=== PATIENT | male | born 1960 | race Caucasian/White ===

== ENCOUNTER 2017-06-18 07:40 | Outpatient (CLI) | payer OTHER ==
--- NOTE | 2017-06-18 17:41 | MRI Report ---
MRI LUMBAR SPINE WITHOUT CONTRAST INDICATION: 57-year-old male with perineal numbness x4 months. TECHNIQUE: 1. Sagittal STIR, T1 and T2. 2. Axial T1 and T2. COMPARISON: None. FINDINGS: There appear to be 5 [id number], lumbar-type vertebrae. The coronal localizer demonstrates a minor, levoconvex curvature with apex at about L3. Alignment in the sagittal plane is essentially normal. There is loss of normal T2 signal from the disks at T12-L1 and L1-L2, confirming degenerative change. Otherwise, the lumbar disks appear relatively well hydrated. The disk space heights are maintained t hroughout. There is minimal anterior wedging of the T12 vertebral body. This can be seen as a normal anatomical variant at the thoracolumbar junction. The vertebral body heights are otherwise preserved. The marrow signal intensity appears normal throughout. The conus terminates in appropriate fashion at about the L1-L2 disk level. There is no abnormal thick ening or lipomatous change of the filum. Axial Images: L1-L2: Tiny intraforaminal protrusions or bulges bilaterally. Minimal foraminal narrowing. No spinal stenosis. L2-L3: Minimal intraforaminal disk displacement bilaterally. Mild foraminal narrowing. No spinal sten osis. L3-L4: Minimal intraforaminal disk displacement bilaterally. Mild foraminal narrowing. No spinal sten osis. L4-L5: Minor, circumferential disk bulge with associated, mild intraforaminal disk displacement bilat erally. Suspect early degenerative facet arthrosis. No significant bony hypertrophy. No spinal stenos is. Mild to moderate foraminal narrowing. L5-S1: No disk herniation. Degenerative facet arthrosis with mild bony hypertrophy. No spinal canal o r foraminal stenosis. IMPRESSION: 1. Early degenerative disk and facet changes are demonstrated in the lumbar spine as described. 2. No spinal stenosis or significant foraminal narrowing. No evidence of neural impingement. Referring Provider Line: [phone] SITE ID: [id number]
== END 2017-06-18 07:41 | disposition home or self-care (01) ==
LOC: DI 07:40
PROVIDERS: ATTEND Psychiatry & Neurology Vascular Neurology
DX: M51.26 Other intervertebral disc displacement, lumbar region (principal); M51.36 Other intervertebral disc degeneration, lumbar region; M47.896 Other spondylosis, lumbar region; M47.897 Other spondylosis, lumbosacral region
CPT/HCPCS: 72148

== ENCOUNTER 2020-08-18 22:52 | Emergency (ER) | payer OTHER ==
[2020-08-19] MEDS ORDERED: NYSTATIN POWDER 15 GM TOP STA (00:26)
--- NOTE | 2020-08-19 00:43 | ED Physician Documentation ---
PD HPI SKIN - Stated complaint Stated Complaint: MED REACTION/RASH - Chief complaint Chief Complaint: Wound - History obtained from History obtained from: Patient - Additional information Additional information: Patient comes emergency department for chief complaint of rash on his left groin area, with concern that this is related to his Lamictal. Patient states that he did not notice any symptoms before today when he suddenly began to feel a burning feeling where his scrotum hangs down and contacts his inner thigh. Patient pulled the scrotum back and noticed that there was a red, weepy rash th ere. Patient had noted on his instructions for the lamotrigine that if there was any rash, he should get it checked out. Patient is concerned because this is a rash, it may have been caused by the lamotrigine. No rash anywhere else. No difficulty breathing or swelling of the oropharyngeal mucosa. Review of Systems Ten Systems: 10 systems reviewed and negative Constitutional: reports: Reviewed and negative Eyes: reports: Reviewed and negative Ears: reports: Reviewed and negative Nose: reports: Reviewed and negative Throat: reports: Reviewed and negative Cardiac: reports: Reviewed and negative Respiratory: reports: Reviewed and negative GI: reports: Reviewed and negative : reports: Reviewed and negative Skin: reports: Rash Musculoskeletal: reports: Reviewed and negative Neurologic: reports: Reviewed and negative Psychiatric: reports: Reviewed and negative Endocrine: reports: Reviewed and negative Immunocompromised: reports: Reviewed and negative PD PAST MEDICAL HISTORY - Past Medical History Past Medical History: Yes Cardiovascular: None Respiratory: None Neuro: None Endocrine/Autoimmune: Type 2 diabetes GI: GERD : Benign prostate hypertrophy HEENT: None Psych: ADD/ADHD Musculoskeletal: None Derm: None - Past Surgical History Past Surgical History: Yes General: Hiatal hernia repair Ortho: Other - Present Medications Home Medications: Ambulatory Orders Medication Instructions Recorded Confirmed Atorvastatin [Lipitor] 20 mg PO DAILY 08/18/20 08/18/20 Pantoprazole [Protonix] 20 mg PO DAILY 08/18/20 08/18/20 Propranolol [Inderal] 10 mg PO DAILY 08/18/20 08/18/20 Sertraline [Zoloft] 50 mg PO DAILY 08/18/20 08/18/20 Sildenafil Citrate [Viagra] 50 mg PO DAILY 08/18/20 08/18/20 Nystatin [Nystop] 1 applic TOP BID #15 gm 08/19/20 - Allergies Allergies/Adverse Reactions: Allergies Allergy/AdvReac Type Severity Reaction Status Date / Time codeine AdvReac Rash Verified 08/18/20 23:12 - Social History Does the pt smoke?: Yes Smoking Status: Current every day smoker Does the pt drink ETOH?: No Does the pt have substance abuse?: No - Immunizations Immunizations are current?: Yes - POLST Patient has POLST: No PD ED PE NORMAL - Vitals Vital signs reviewed: Yes - General General: Alert and oriented X 3, No acute distress - HEENT HEENT: Atraumatic, PERRL, EOMI, Moist mucous membranes - Neck Neck: Supple, no meningeal sign - Cardiac Cardiac: RRR, No murmur, Strong equal pulses - Respiratory Respiratory: No respiratory distress, Clear bilaterally - Abdomen Abdomen: Soft, Non tender, Non distended - Male Male : Other (Moist, intensely red rash with mirror image formation between proximalmost medial left thigh and scrotum. No induration, edema, or drainage. Satellite lesions noted.) - Derm Derm: Warm and dry - Extremities Extremities: No deformity, No edema - Neuro Neuro: Alert and oriented X 3 - Psych Psych: Normal mood, Normal affect Results - Vitals Vitals: Vital Signs - 24 hr 08/18/20 08/19/20 23:06 00:46 Temperature 36.4 C L Heart Rate 110 H 20 L Respiratory 17 17 Rate Blood Pressure 138/100 H 138/96 H O2 Saturation 96 95 Oxygen O2 Source Room air PD MEDICAL DECISION MAKING - ED course Complexity details: considered differential, d/w patient ED course: I discussed with the patient that this is not the kind of rash that would be of concern with his lamotrigine or with any other medication in terms of reaction. I explained to the patient what a medication reaction may look like and that it would be far more diffuse though this. The patient symptoms appear consistent with candidal dermatitis in the flexural areas. We have started nystatin here and I have given the patient a prescription for the nystatin. As for whether he will still take the lamotrigine, I have advised him that it is up to him, but I do not believe he has had a reaction to the lamotrigine. Patient is advised to follow-up with his primary care physician for further concerns. Departure - Departure Disposition: 01 Home, Self Care Clinical Impression: Jennifer infection of flexural skin Condition: Stable Instructions: ED Candidiasis Cutaneous Prescriptions: Nystatin [Nystop] 1 applic TOP BID #15 gm Comments: Your rash does not have the appearance or distribution that is associated with a medication reaction. Generally, we would expect this kind of rash to take the appearance more of hives or "bumps". Additionally, the rash generally would be spread at least over your torso and often over the extremities, as well. The rash you have is very much consistent with a yeast infection, and anywhere where skin folds come together is prone to this kind of infection. Additionally, your having diabetes puts you at increased risk for this, as well. Please apply the powder to the area twice daily for the next 7 days or until the rash completely resolves. It is up to you whether to continue taking the lamotrigine, but at this time, you do not appear to be having an allergic reaction or a side effect related to that medication. Your blood pressure here was 138/100 when you first got here. The top number is on the high end of normal, and the bottom number is somewhat elevated, as we like to see it below 95. If your blood pressures continue to run high, please follow-up with your primary care physician to discuss the best treatment plan. Discharge Date/Time: 08/19/20 00:58
[2020-08-19 00:47] VITALS: BP 138/96
== END 2020-08-19 00:58 | disposition home or self-care (01) ==
LOC: ED 22:52
DX: B37.2 Candidiasis of skin and nail (principal); E11.9 Type 2 diabetes mellitus without complications; F17.200 Nicotine dependence, unspecified, uncomplicated
CPT/HCPCS: 99282; 99284; A9270

== ENCOUNTER 2020-11-18 16:21 | Outpatient (CLI) | payer OTHER ==
[2020-11-18 17:17] VITALS: BP 119/78
--- NOTE | 2020-11-18 17:17 | SLEEP CARE CONSULTATION ---
Information from patient questionnaire entered by Henrry Tripathi. I have reviewed and concur with the information entered by Henrry Tripathi. This document represents the service I personally performed and the decisions made by me, Nannette Spaulding ARNP. History of Present Illness Service Date and Time: 11/18/2020 1621 Reason for Visit: New patient Chief Complaint: reports: Unrefreshed sleep, Snoring, Excessive daytime sleepiness, Observed pauses in breathing, Frequent awakenings at night Date of Onset: 25 years Usual bedtime: 2200 Time it takes to fall asleep: several hours sometimes Snores at night: Yes Observed to quit breathing while asleep: Yes Sleeps alone due to snoring: No Number of times waking at night: 3 to 4 Reasons for waking at night: reports: Choking (acid reflux), Gasping for air, Other (dreams, other unknown) Toss, Turn, or Twitch while sleeping: No Recalls having dreams: Yes Usually gets out of bed at: 0530 - 0600 Feels refreshed in the morning: No Morning headache: No Sleepy or fatigued during the day: Yes Ever fallen asleep while driving: No (no drowsy driving) Takes day naps: No Prior sleep studies: No Additional HPI information: I had the pleasure of seeing ALEXIA HARVEY today regarding the possibility of him having a sleep disorder. His current complaints are frequent night awakenings, insomnia, snoring, and unrefreshed sleep. His states he snores a lot and will sometimes sleep in another room. He has had trouble during surgery with his vital signs decreasing and needs extra oxygen. His has observed pauses in breathing. He feels that sometimes it feels like his throat is closing. He does not wake up feeling refreshed and is tired throughout the day. His mother has sleep apnea and in on a PAP device. - Parasomnia Symptoms Ever been unable to move upon waking from sleep: No Walks in sleep: No Talks in sleep: Yes Ever acted out dreams in sleep: No Ever felt weak in the knees when startled or emotional: No Bothered by creepy, crawly, restless sensations in legs: No Problems with memory or concentration: Yes (more memory problems but concentration is better with medication) Subjective Initial [place] Sleepiness Scale score: 8 (in 2020) Past Medical History Past Medical History: reports: Claustrophobia, Diabetes, Anxiety, Impotence, Asthma, Depression, GERD, Other (heart murmur) Social History 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 Patient is and lives in [place]. Have you smoked in the past 12 months: Yes Cigarettes per day (20/pack): 40 Years of smokin Smoking Pack Years: 20.0 Alcohol use: No Caffeine use: Yes Caffeine amount and frequency: 2 - 5 days/week Family History Family history of sleep disordered breathing: Yes Family Hx Sleep Apnea: Mother: Snoring, Sleep apnea - Treated Allergies and Home Medications Drug allergies reviewed: Yes (codiene, metformin) Home medication list reviewed: Yes Allergy and home medication list: Pioglitazone Pantoprazole Omeprazole Atorvastin Primadone Propanolol Sertraline Tamusolin Nortriptyline Amphetamine-Dextroamphetamine Lamotrigine Trulicity Review of Systems Weight gain over past 5 years: 50 Weight loss over past 5 years: 13 Cardiovascular: reports: palpitations Respiratory: reports: shortness of breath, wheeze Gastrointestinal: reports: heartburn Neurological: denies: headaches, head trauma Psychiatric: reports: anxiety, depression, claustrophobia Ear/Nose/Throat: reports: tonsillectomy, wisdom teeth removed. denies: injury to nose Musculoskeletal: reports: joint pain (stiffness), neck pain, back pain Immunologic: reports: other (Hay fever) Physical Exam Blood Pressure: 119/78 Cuff size: wrist Heart Rate: 90 O2 Saturation: 94 Height: 5 ft 5 in Weight: 224 lb Body Mass Index: 37.3 BMI Classification: Obese Neck circumference: 19 (inches) Mouth and throat: narrow oropharynx Soft palate: long Hard palate: normal Uvula visualization: 25% Mallampati Class III Tongue: enlarged in size with teeth hall on lateral edges Tonsils: absent bilaterally Neck: normal w/o lymphadenopathy or thyromegaly Heart: irregular rhythm Lungs: clear bilaterally Impression and Plan 1. Suspected Obstructive Sleep Apnea-Hypopnea Syndrome, as suggested by a history of loud and irregular snoring, observed cessation of breath while asleep, gasping or choking in sleep, frequent awakening during the night, unrefreshed sleep, cognitive impairment, and excessive daytime sleepiness. Narrow oropharynx and obesity are common predisposing factors for obstructive sleep apnea-hypopnea syndrome. I recommend proceeding to polysomnography to confirm the diagnosis and to assess severity. If the patient has significant sleep disordered breathing, a manual CPAP titration study will also be performed to find the optimal treatment pressure. I informed the patient of what the sleep studies involve and after some discussion, obtained agreement to proceed. The pathophysiology of obstructive sleep apnea-hypopnea syndrome was discussed with the patient and health risks of cardiovascular and cerebrovascular disease if not treated. [facility] brochure for obstructive sleep apnea-hypopnea syndrome given and reviewed. Risks of drowsy driving discussed in detail and patient advised to avoid long distance driving and to pull up hand at the first sign of drowsiness. Patient agreed to plan. * Schedule polysomnography +- manual CPAP titration study and return in 1-2 weeks after the study to discuss result and initiate therapy. * Avoid long distance driving or driving when feeling sleepy. * Avoid alcohol, sedative and muscle relaxant around bedtime. * Attempt to lose weight. * Review instructions provided by trained office staff on how to prepare for the sleep study. * Return for follow-up after sleep study completed. Counseling Topics: Weight loss health impact Visit Type: In Office Time Spent with Patient (minutes): 35 Provider Statement: I spent 100% of the Face to Face Visit with the patient with greater than 50% spent counseling the patient and coordination of care.
== END 2020-11-18 16:22 | disposition home or self-care (01) ==
LOC: SC 16:21
PROVIDERS: ATTEND Nurse Practitioner Family
DX: R06.83 Snoring (principal); R06.81 Apnea, not elsewhere classified; G47.8 Other sleep disorders; R41.89 Other symptoms and signs involving cognitive functions and awareness; G47.10 Hypersomnia, unspecified; E66.9 Obesity, unspecified; Z68.37 Body mass index [BMI] 37.0-37.9, adult
CPT/HCPCS: 99203; 99212

== ENCOUNTER 2020-12-06 10:06 | Outpatient (CLI) | payer OTHER | END 2020-12-06 10:07 | disposition home or self-care (01) | LOC: SC 10:06 | PROVIDERS: ATTEND Nurse Practitioner Family | DX: G47.33 Obstructive sleep apnea (adult) (pediatric) (principal); R09.02 Hypoxemia | CPT/HCPCS: 95806 ==

== ENCOUNTER 2021-01-13 16:37 | Outpatient (CLI) | payer OTHER ==
--- NOTE | 2021-01-13 17:02 | SLEEP CARE CONSULTATION ---
Information from patient questionnaire entered by Henrry Tripathi. I have reviewed and concur with the information entered by Henrry Tripathi. This document represents the service I personally performed and the decisions made by me, Nannette Spaulding ARNP. History of Present Illness Service Date and Time: 01/13/2021 1637 Initial [place] Sleepiness Scale score: 8 (in 2020) Current [place] Sleepiness Scale score: 13 Additional HPI information: ALEXIA HARVEY returns for follow up and results of the recently performed home sleep study. I explained the pathophysiology behind obstructive sleep apnea. We then spent quite a bit of time discussing different treatment options. For mild obstructive sleep apnea, surgery and oral appliance are alternatives to nasal CPAP therapy but in moderate or severe cases, nasal CPAP is the most effective and reliable treatment. Because apnea is primarily in supine position, then positional management therapy could be effective. Methods discussed such as positioning with pillows, using a T-shirt with tennis balls in the back, and shown commercial products that have a pillow format on back to prevent supine sleep. I reviewed the impact of weight changes on sleep apnea and strongly recommended losing weight. After some discussion, the patient opted to go with the nasal CPAP therapy. Nasal autoCPAP set at 4-15 cmH20 will be ordered with rationale explained. A manual titration study will be ordered if unable to find optimal pressure with office adjustments. I explained how CPAP machine works with sample devices Respironics Dreamstation and ResSpotlime [id number] and what to expect when using the machine. Using CPAP every night in order to get used to it was emphasized. Patient advised to put CPAP mask on before getting into bed so as not to fall asleep without CPAP. To assist acclimation to CPAP use, it could also be used for a short time during day while reading or watching TV. The patient was instructed to call the CPAP supplier to discuss any mechanical problem that may occur. If the mask given is uncomfortable or is difficult to keep on through the night even with adjustment, contact the CPAP supplier as many will replace with another mask style if notified before 30 days. If snoring or perceives is not getting enough air or too much air from the machine, notify this office. [facility] patient education PAP tips reviewed and given to patient. Patient does not drink alcohol. Patient was cautioned about risks of drowsy driving until sleepiness symptoms resolve. Sleep Study - Results Type of Sleep Study: Home sleep study Prior sleep studies: No Polysomnography/Home Sleep Study results: Physician Impression: The quality of the study is good. The length of the study is adequate (> 240 minutes). Please also see the tabulated and graphic data. 1. Obstructive Sleep Apnea-Hypopnea (ICD-10 G47.33), moderate, with an AHI of 28.7/hr and sam SaO2 of 68%. During the study, the patient had 57 apneas (57 obstructive, 0 central, 0 mixed) and 134 hypopneas. The longest episode lasted 85.0 seconds. The patient only slept supine during this study (supine AHI was 28.4 and non-supine, 133.33). 2. Hypoxemia (ICD-10 R09.02), moderate, with the lowest oxygen saturation of 68 % and 145.3 minutes with SaO2 under 90%. Baseline oxygen saturation was normal (Average oxygen saturation was 89%). Allergies and Home Medications Home medication list reviewed: Yes (no changes) Review of Systems Review of systems same as previous: Yes (no changes) Physical Exam O2 Saturation: 96 Height: 5 ft 5 in Weight: 223 lb Weight change since last visit: 1 lb loss Body Mass Index: 37.0 BMI Classification: Obese Impression and Plan 1. Obstructive Sleep Apnea-Hypopnea Syndrome, moderate, with lowest oxygen saturation of 68%. Obviously this is the cause of the patients symptoms of unr efreshed sleep, and excessive daytime sleepiness. Positive pressure therapy could benefit diabetes, anxiety, depression, asthma and gastric reflux. As mentioned above, the patient will be started on nasal autoCPAP therapy with pressure set at 4-15 cmH2O. A manual titration study will be completed if unable to find optimal treatment pressure with office adjustments. Compliance guidelines also reviewed. A copy of compliance guidelines will be given for reference at check out. 2. Hypoxemia, moderate, with the lowest oxygen saturation of 68 % and 145.3 minutes with SaO2 under 90%. His baseline oxygen saturation was normal with an average oxygen saturation of 89%. * Nasal auto CPAP therapy, pressure at 4-15 cm H2O. * Attempt to lose weight. * Avoid alcohol consumption near bedtime. * Avoid supine sleep until using CPAP. * The patient is again cautioned about driving until sleepiness completely resolves. * Return one month after CPAP obtained. I will assess response to therapy and compliance at that time. Counseling Topics: Weight loss health impact Visit Type: In Office Time Spent with Patient (minutes): 23 Provider Statement: I spent 100% of the Face to Face Visit with the patient with greater than 50% spent counseling the patient and coordination of care.
== END 2021-01-13 16:38 | disposition home or self-care (01) ==
LOC: SC 16:37
PROVIDERS: ATTEND Nurse Practitioner Family
DX: G47.33 Obstructive sleep apnea (adult) (pediatric) (principal); R09.02 Hypoxemia; E66.9 Obesity, unspecified; Z68.37 Body mass index [BMI] 37.0-37.9, adult
CPT/HCPCS: 99212; 99213

== ENCOUNTER 2021-04-05 19:06 | Emergency (ER) | payer OTHER ==
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
--- NOTE | 2021-04-05 20:51 | CT Report ---
PROCEDURE: HEAD WO INDICATIONS: Loss of hearing right ear TECHNIQUE: Noncontrast 4.5 mm thick angled axial sections acquired from the foramen magnum to the vertex. For r adiation dose reduction, the following was used: automated exposure control, adjustment of mA and/or kV according to patient size. COMPARISON: None. FINDINGS: BRAIN PARENCHYMA: No acute cortical based (large territory) infarction, intracranial hemorrhage, mass or mass effect, or abnormal fluid collection. White matter hypoattenuation, most consistent with seq uelae of microvascular ischemia. The density in the larger dural venous sinuses is grossly normal. VENTRICLES: Normal in size, shape, and position. BONES/SINUSES: The skull base and calvarium demonstrate no acute abnormality. The paranasal sinuses a nd mastoid air cells are well aerated. IMPRESSION: 1.No acute intracranial abnormality. Reviewed by: Patrice Yan MD on 04/05/2021 8:50 PM PST Approved by: Patrice Yan MD on 04/05/2021 8:50 PM PST Station ID: [id number]
[2021-04-05 21:23] VITALS: BP 133/88
== END 2021-04-05 21:22 | disposition home or self-care (01) ==
LOC: ED 19:06
DX: H91.91 Unspecified hearing loss, right ear (principal); H93.13 Tinnitus, bilateral; F17.200 Nicotine dependence, unspecified, uncomplicated
CPT/HCPCS: 99283; 99284

== ENCOUNTER 2023-01-04 22:08 | Emergency (ER) | payer OTHER ==
[2023-01-04] MEDS ORDERED: ACETAMINOPHEN 325 MG TABLET PO STA (22:50)
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
[2023-01-05 00:28] VITALS: BP 125/78; O2SAT 98
== END 2023-01-05 00:24 | disposition home or self-care (01) ==
LOC: ED 22:08
DX: R51.9 Headache, unspecified (principal); E11.9 Type 2 diabetes mellitus without complications; V89.2XXA Person injured in unspecified motor-vehicle accident, traffic, initial encounter; Z79.85 Long-term (current) use of injectable non-insulin antidiabetic drugs; F17.200 Nicotine dependence, unspecified, uncomplicated
CPT/HCPCS: 70450; 99283; 99284; A9270

== ENCOUNTER 2023-01-13 22:55 | Emergency (ER) | payer OTHER ==
[2023-01-14] MEDS ORDERED: KETOROLAC 10 MG TABLET PO PRN (00:57)
[2023-01-14] MEDS ORDERED: KETOROLAC 15 MG/ML VIAL IVP STA (01:20)
[2023-01-14] MEDS ORDERED: diphenhydrAMINE INJ 50 MG/ML VIAL IVP STA (01:20)
[2023-01-14] MEDS ORDERED: PROCHLORPERAZINE 10 MG/2 ML VIAL IVP STA (01:20)
[2023-01-14] MEDS ORDERED: SODIUM CHLORIDE 0.9% 1,000 ML IV STA (01:21)
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
[2023-01-14 04:21] VITALS: BP 131/82; O2SAT 93
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
== END 2023-01-14 04:20 | disposition home or self-care (01) ==
LOC: ED 22:55
DX: S06.0X0A Concussion without loss of consciousness, initial encounter (principal); V89.2XXA Person injured in unspecified motor-vehicle accident, traffic, initial encounter; Y92.410 Unspecified street and highway as the place of occurrence of the external cause; E11.9 Type 2 diabetes mellitus without complications; F17.200 Nicotine dependence, unspecified, uncomplicated; Z79.899 Other long term (current) drug therapy
CPT/HCPCS: 70450; 96374; 96375; 99283; 99284; J1200

== ENCOUNTER 2023-03-14 08:30 | Outpatient (CLI) | payer OTHER ==
--- NOTE | 2023-03-14 09:01 | Sleep Patient Instructions ---
Sleep Center Visit Summary - Patient Visit Information Reason for Visit: Annual visit - Patient Instructions Additional Instructions: You will continue with CPAP therapy with pressure changed to 11-16 cmH2O. A supply prescription will be updated with your DME. We encourage you to continue to try to lose weight. Please follow up with the sleep care office in 1-2 months. - Clinic Information Contact: [facility] [address] [place] [address] [email or web address] T: [phone]
--- NOTE | 2023-03-14 09:06 | SLEEP CARE CONSULTATION ---
Information from patient questionnaire entered by Summer Ricks. I have reviewed and concur with the information entered by Summer Ricks. This document represents the service I personally performed and the decisions made by , Nannette Spaulding ARNP. History of Present Illness Service Date and Time: 03/14/2023 0830 Previous diagnosis: Moderate, Obstructive Sleep Apnea-Hypopnea Syndrome AHI: 28.7 (in 2020) Reason for follow up: annual (LAST SEEN 01/2021) Equipment type: CPAP (RESMED Airsense 11, s/u 03/02) Equipment obtained from: Other ([facility]; getting supplies) Mask style: Full face Backup mask available: Yes Last cushion change: 2 weeks Prior sleep studies: No Type of Sleep Study: Home sleep study HPI additional information: ALEXIA HARVEY was diagnosed to have moderate, AHI 28.7, obstructive sleep apnea-hypopnea syndrome and returned today for CPAP therapy annual follow-up. Sleep Study - Results Type of Sleep Study: Home sleep study Prior sleep studies: No CPAP Compliance Data - Data Reviewed with Patient Average duration of nightly device use: 3 hours 50 minutes Compliance rate %: 34 (283/365 days used) Current pressure setting (cmH2O): 6.2-16.2 (median 11.2, avg 14.3, max 15.1) Average residual AHI: 4.3 Central apnea: 0.7 Obstructive apnea: 2.3 Hypopnea: 1.1 Average large leak: 6.9 L/min Subjective Missed days of use due to: reports: other (taking off when sleeping or fall asleep without mask) Patient concerns: reports: dry mouth, nose, throat (if mouth comes open). denies: aerophagia, mask discomfort, air blowing in eyes, mask leak noise, condensation in mask/hose, nasal congestion, epistaxis Observed to snore while using device: Yes (occasionally according to ) Current pressure setting perceived as: too low On therapy, patient: reports: sleeping better, awakening more refreshed, being more awake and alert during the day, more rested overall. denies: drowsiness while driving Initial [place] Sleepiness Scale score: 8 (in 2020) Current [place] Sleepiness Scale score: 4 Allergies and Home Medications Known drug allergies: Yes (as listed) Drug allergies reviewed: Yes Home medication list reviewed: Yes (no changes) Allergy and home medication list: Allergies codeine Adverse Reaction (Verified 03/13/23 09:34) Rash Review of Systems Review of systems same as previous: Yes (no changes) Physical Exam Vital signs obtained and entered by: NANNETTE VILLEDA Blood Pressure: 110/79 Cuff size: wrist (right) Heart Rate: 95 O2 Saturation: 94 Height: 5 ft 6 in Weight: 219 lb Body Mass Index: 35.3 BMI Classification: Obese Impression and Plan 1. Obstructive Sleep Apnea-Hypopnea Syndrome, moderate, with fair treatment compliance and good apnea control. On CPAP therapy, the patient has better sleep quality and is more rested overall. He states sometimes he will take the mask off while he is asleep. He does feel refreshed even though he is only getting a few hours of sleep at night. He has other issues he is dealing with that is interrupting his sleep including having to get up early for work. Most people require 7-9 hours of sleep for optimal mental and physical function. Less than 5-6 hours of sleep consistently can contribute to health risks and mortality. Thus patient is advised to strive for a minimum of 7 hours of sleep. Methods discussed on how patient can achieve within their lifestyle. The patients pressure will be changed to autoCPAP 11-16 cmH20 to reflect pressure being used. Patient advised to contact me if pressure change is uncomfortable so that it can be adjusted. Goals for apnea control discussed. Patient's apnea severity and rationale for treatment to reduce apnea, improve sleep quality and reduce cardiovascular and cerebrovascular events was reviewed. I also reviewed the benefit of consistent device use of CPAP for diabetes, gastric reflux, depression, anxiety and asthma. 2. Obesity, unspecified. Currently patients BMI is 35.3. Obesity increases the risk of apnea, CPAP pressure requirements and overall health risks especially cardiovascular and diabetes. Thus patient is advised to lose weight. * Turn off ramp starting pressure * Change auto CPAP pressure to 11-16 cmH2O * Update supply prescription * Notify me if snoring with mask or feeling that the pressure is too much or too little * Attempt to lose weight * Call this office if any problems using CPAP * Return for follow up in 1-2 months, or sooner if concerns arise Counseling Topics: Spare mask, Weight loss health impact Prescriptions: Device supplies Follow up with Sleep Care in: 1-2 months Visit Type: In Office Time Spent with Patient (minutes): 28 Provider Statement: I spent 100% of the Face to Face Visit with the patient with greater than 50% spent counseling the patient and coordination of care.
[2023-03-14 09:24] VITALS: BP 110/79; O2SAT 94
== END 2023-03-14 08:31 | disposition home or self-care (01) ==
LOC: SC 08:30
PROVIDERS: ATTEND Nurse Practitioner Family
DX: G47.33 Obstructive sleep apnea (adult) (pediatric) (principal); E66.9 Obesity, unspecified; Z68.35 Body mass index [BMI] 35.0-35.9, adult
CPT/HCPCS: 99212; 99213

== ENCOUNTER 2023-04-19 16:07 | Outpatient (CLI) | payer OTHER ==
--- NOTE | 2023-04-19 16:35 | Sleep Patient Instructions ---
Sleep Center Visit Summary - Patient Visit Information Reason for Visit: 1 month followup - Patient Instructions Additional Instructions: You were here for follow up of CPAP therapy. You will be continued on CPAP therapy with pressure at 11-16 cmH2O. You should follow up with sleep care in 12 months. You may contact us sooner for any questions or concerns. - Clinic Information Contact: [facility] [address] [place] [id number] [email or web address] T: [phone]
--- NOTE | 2023-04-19 16:39 | SLEEP CARE CONSULTATION ---
Information from patient questionnaire entered by Argentina Ricks. I have reviewed and concur with the information entered by [place] Ricks. This document represents the service I personally performed and the decisions made by me, Nannette Spaulding ARNP. History of Present Illness Service Date and Time: 04/19/2023 1607 Previous diagnosis: Moderate, Obstructive Sleep Apnea-Hypopnea Syndrome AHI: 28.7 (in 2020) Reason for follow up: one month (F/U) Equipment type: CPAP (RESMED Airsense 11, s/u 02/2021) Equipment obtained from: Other ([facility], getting supplies) Mask style: Full face Backup mask available: Yes Last cushion change: last week Prior sleep studies: No Type of Sleep Study: Home sleep study HPI additional information: ALEXIA HARVEY was diagnosed to have moderate, AHI 28.7, obstructive sleep apnea- hypopnea syndrome and returned today for CPAP therapy one month follow-up. Sleep Study - Results Type of Sleep Study: Home sleep study Prior sleep studies: No CPAP Compliance Data - Data Reviewed with Patient Average duration of nightly device use: 4 hours 52 minutes Compliance rate %: 47 (/30 days used) Current pressure setting (cmH2O): 11-16 Average residual AHI: 4.2 Central apnea: 0.9 Obstructive apnea: 2 Average large leak: 2.2 L/min Subjective Patient concerns: denies: aerophagia, mask discomfort, air blowing in eyes, mask leak noise, condensation in mask/hose, nasal congestion, dry mouth, nose, throat, epistaxis Observed to snore while using device: Yes Current pressure setting perceived as: comfortable On therapy, patient: reports: sleeping better, awakening more refreshed, being more awake and alert during the day, more rested overall. denies: drowsiness while driving Initial [place] Sleepiness Scale score: 8 (in 2020) Current [place] Sleepiness Scale score: 8 (04/19/23) Allergies and Home Medications Known drug allergies: Yes (codeine) Drug allergies reviewed: Yes Home medication list reviewed: Yes (Vitamin D) Allergy and home medication list: Allergies codeine Adverse Reaction (Verified 04/18/23 17:18) Rash Review of Systems Review of systems same as previous: Yes (NO CHANGE) Physical Exam Vital signs obtained and entered by: ARGENTINA Villalobos MA Blood Pressure: 120/68 (LEFT ARM) Cuff size: regular Heart Rate: 74 O2 Saturation: 97 Height: 5 ft 6 in Weight: 223 lb 12.8 oz Body Mass Index: 36.1 BMI Classification: Obese Impression and Plan 1. Obstructive Sleep Apnea-Hypopnea Syndrome, moderate, with fair treatment compliance and good apnea control. On CPAP therapy, the patient has better sleep quality and is more rested overall. Patient states sometimes his machine does not seem to show as much time that he has had with the mask on when he looks at it. He does get his mask on about 90% of the time. He likes the pressure change done at his last visit. Patient has significant improvement of their sleep apnea and is satisfied with current CPAP therapy. Patient denies problems with oral dryness, nasal congestion, epistaxis, skin irritation or aerophagia. Patient's apnea severity and rationale for treatment to reduce apnea, improve sleep quality and reduce cardiovascular and cerebrovascular events was reviewed. I also reviewed the benefit of consistent device use of CPAP for diabetes, gastric reflux, depression/anxiety, and asthma. 2. Obesity, unspecified. Currently patients BMI is 36.1. Obesity increases the risk of apnea, CPAP pressure requirements and overall health risks especially cardiovascular and diabetes. Thus patient is advised to lose weight. * Continue auto CPAP pressure at 11-16 cmH2O * Notify me if snoring with mask or feeling that the pressure is too much or too little * Attempt to lose weight * Call this office if any problems using CPAP * Return for follow up in 6 months, or sooner if concerns arise Counseling Topics: Weight loss health impact Follow up with Sleep Care in: 6 months Visit Type: In Office Time Spent with Patient (minutes): 20 Provider Statement: I spent 100% of the Face to Face Visit with the patient with greater than 50% spent counseling the patient and coordination of care.
[2023-04-19 16:41] VITALS: BP 120/68; O2SAT 97
== END 2023-04-19 16:08 | disposition home or self-care (01) ==
LOC: SC 16:07
PROVIDERS: ATTEND Nurse Practitioner Family
DX: G47.33 Obstructive sleep apnea (adult) (pediatric) (principal); E66.9 Obesity, unspecified; Z68.36 Body mass index [BMI] 36.0-36.9, adult
CPT/HCPCS: 99212; 99213